=== PATIENT | female | born 1995 | race Caucasian/White ===

== ENCOUNTER 2017-11-23 21:08 | Emergency (ER) | payer OTHER ==
[~2017-11-23] VITALS: Ht 175.3 cm; Wt 59.9 kg
[2017-11-23] MEDS ORDERED: KLONOPIN1 MG ORAL (21:22)
[2017-11-24] MEDS ORDERED: IBUPROFEN400 MG ORAL (01:15)
[2017-11-24 01:34] VITALS: BP 126/78
--- NOTE | 2017-11-24 11:36 | Diagnostic Imaging Report ---
Indication: Pain, status post slip and fall today Technique: 2 views of the right elbow Comparison: none Findings: No acute fractures. No dislocations. The joint spaces are preserved. No evidence of effusion Impression: Negative
--- NOTE | 2017-11-24 11:48 | Diagnostic Imaging Report ---
Indication: Pain, status post slip and fall Technique: 3 views of the right ankle Comparison: none Findings: No acute fractures. No dislocations. Joint spaces are preserved. Normal mineralization. No radiopaque foreign body. Impression: Negative
--- NOTE | 2017-11-24 11:50 | Emergency Room Report ---
History of Present Illness General Chief Complaint: Lower Extremity Injury Source: Patient Present Illness Allergies: Coded Allergies: No Known Allergies (Unverified , 11/23/17) Patient History Last Menstrual Period: 11/23/17 Now: No : 2 Para: 0 Nursing Documentation-[facility] Past Medical History: No History, Except For History Of Psychiatric Problem: Yes - anxiety Physical Exam Vital Signs Date Time Temp Pulse Resp B/P (MAP) Pulse Ox O2 Delivery O2 Flow Rate FiO2 11/23/17 21:18 98.5 88 14 126/78 96 Room Air 98.4 Medical Decision Making Diagnostic Impression: Primary Impression: Contusion of right elbow Additional Impressions: Ankle sprain Contusion, knee ER Course Dr Colby called that patient had lucency seen on 2 view of knee xray - might represent osteosarcoma - needs MRI to r/o additional lesion Called and left VM for patient on phone number given Will also send letter Last Vital Signs Date Time Temp Pulse Resp B/P (MAP) Pulse Ox O2 Delivery O2 Flow Rate FiO2 11/24/17 01:34 98.5 14 126/78 96 Room Air 98.4 11/23/17 21:18 88 Disposition: HOME, SELF-CARE Condition: Stable Scripts Ibuprofen* (MOTRIN*) 400 Mg Tablet 400 MG ORAL Q8H, #30 TAB 0 Refills Prov: Luis Freeman 11/24/17 Patient Instructions: Ankle Sprain, Contusion MIKAEL SNIDER M.D. Nov 24, 2017 11:50
--- NOTE | 2017-11-24 11:53 | Diagnostic Imaging Report ---
Indications: Pain, status post slip and fall today Technique: Three views of the right knee Comparison: None Findings: There is a 5 mm lucency projecting in the region of the intercondylar notch of the femur. This is seen on 2 views. No bony fragment demonstrated. No other evidence of fracture or dislocation. No effusion. Joint spaces are preserved. Impression: 5 mm lucency projecting in the region of the intercondylar notch of the distal femur. Significance uncertain, but could represent evidence of a small osteochondral fracture. If there is high clinical suspicion, MRI may be useful for further evaluation No other acute bony trauma demonstrated Findings discussed by phone with Dr. Huerta at the time of interpretation
--- NOTE | 2017-11-27 07:10 | Emergency Room Report ---
History of Present Illness General Chief Complaint: Lower Extremity Injury Source: Patient Present Illness HPI Patient is a 22-year-old female who presented after a fall at work. Patient reports having fallen onto her right side. She denies loss of consciousness. She reports having increased pain to her right knee as well as to her right elbow right knee and right ankle. The patient is having some difficulty with standing. Injury occurred prior to arrival. The patient works at a restaurant Allergies: Coded Allergies: No Known Allergies (Unverified , 11/23/17) Patient History Past Medical History: none Last Menstrual Period: 11/23/17 Now: No : 2 Para: 0 Reviewed Nursing Documentation: PMH: Agreed, PSxH: Agreed Nursing Documentation-[facility] Past Medical History: No History, Except For History Of Psychiatric Problem: Yes - anxiety Review of Systems All Other Systems: negative except mentioned in HPI Physical Exam Vital Signs Date Time Temp Pulse Resp B/P (MAP) Pulse Ox O2 Delivery O2 Flow Rate FiO2 11/23/17 21:18 98.5 88 14 126/78 96 Room Air 98.4 Sp02 EP Interpretation: reviewed, normal General Appearance: normal inspection, alert, no apparent distress, GCS 15 Head: normocephalic, atraumatic Eyes: normal eye exam, PERRL, EOMI, lids + conjunctiva normal, no hyphema, no racoon eyes ENT: normal ENT inspection, oropharynx normal, no jiménez signs Neck: trach midline, no bony tend, full range of motion without pain Respiratory: effort normal, no retractions, clear to auscultation, chest symmetrical, palpation of chest normal, speaking in full sentences Cardiovascular: regular rate, rhythm, no JVD Cardiovascular #2: 2+ radial (R), 2+ radial (L), 2+ dorsalis pedis (R), 2+ dorsalis pedis (L) Gastrointestinal: normal inspection, non-tender, non-distended, no rebound/ guarding, normal bowel sounds Musculoskeletal: normal ROM, non-tender, back normal Skin: normal palpation, other - bruising to right elbow near triceps Lymphatic: normal inspection Neurologic: normal inspection, CN II-XII intact, oriented x3, sensory intact, motor strength/tone normal, normal speech Psychiatric: normal inspection, memory normal, mood normal, no suicidal/ homicidal ideation Medical Decision Making Diagnostic Impression: Primary Impression: Contusion of right elbow Additional Impressions: Ankle sprain Contusion, knee ER Course Patient presented after fall. Differential diagnosis included was not limited to elbow fracture, dislocation, contusion, ankle sprain, fracture, contusion, knee contusion among others.Because of complexity of patient's case imaging studies were ordered. X-ray imaging of the right knee 3 views interpreted by me showed normal bony alignment without evident fracture. X-ray of the right ankle 3 views interpreted by me showed normal bony alignment without evident fracture. X-ray of the left elbow 2 views interpreted by me showed normal bony alignment without evident fracture. The patient is advised to follow up with workers comp physician for recheck . Patient was placed in an Hari wrap. She was given crutches and a sling. Patient was given prescription for ibuprofen and placed on light duty. Patient is advised to return if any worsening condition or if any changes in status that are concerning. This report is dictated with [employer] sr[employer] software which may occasionally lead to discrepancies related to use of this software. Last Vital Signs Date Time Temp Pulse Resp B/P (MAP) Pulse Ox O2 Delivery O2 Flow Rate FiO2 11/24/17 01:34 98.5 14 126/78 96 Room Air 98.4 11/23/17 21:18 88 Status: improved Disposition: HOME, SELF-CARE Condition: Stable Scripts Ibuprofen* (MOTRIN*) 400 Mg Tablet 400 MG ORAL Q8H, #30 TAB 0 Refills Prov: Luis Freeman 11/24/17 Patient Instructions: Ankle Sprain, Contusion Luis Freeman Nov 27, 2017 07:09
== END 2017-11-24 01:34 | disposition home or self-care (01) ==
LOC: EDBD 21:08 → EMR 23:54
DX: S50.01XA Contusion of right elbow, initial encounter (principal); S93.401A Sprain of unspecified ligament of right ankle, initial encounter; S80.01XA Contusion of right knee, initial encounter; F41.9 Anxiety disorder, unspecified; W18.30XA Fall on same level, unspecified, initial encounter; Y92.511 Restaurant or cafe as the place of occurrence of the external cause; Y99.0 Civilian activity done for income or pay
CPT/HCPCS: 81025; 99284